=== PATIENT | female | born 1960 | race Caucasian/White ===

== ENCOUNTER → 2017-12-22 | Outpatient (CLI) | payer BC ==
[2017-12-22 11:07] LABS: HGB 13.6 gm/dL (11.4-16.0); MCH 26.5 pg (25.0-35.0); MCHC 33.2 g/dL (31.0-37.0); MCV 79.7 fL (80.0-100.0); Mean Platelet Volume 7.5; Platelet Count 263 k/uL (150-450); RBC 5.15 m/uL (3.80-5.40); RDW 13.7 % (11.5-15.5); WBC 8.5 k/uL (3.8-10.6)
[2017-12-22 11:33] LABS: ALT 26 U/L (9-52); AST 20 U/L (14-36); Alkaline Phosphatase 90 U/L (38-126); Anion Gap 10 mmol/L; Blood Urea Nitrogen 19 mg/dL (7-17); Calcium 9.4 mg/dL (8.4-10.2); Carbon Dioxide 28 mmol/L (22-30); Chloride 103 mmol/L (98-107); Cholesterol 170 mg/dL (<200); Glucose 128 mg/dL (74-99); HDL Cholesterol 34 mg/dL (40-60); LDL Cholesterol,Calculated 106 mg/dL (0-99); Potassium 4.4 mmol/L (3.5-5.1); Sodium 141 mmol/L (137-145); Total Bilirubin 0.5 mg/dL (0.2-1.3); Total Protein 7.5 g/dL (6.3-8.2); Triglycerides 149 mg/dL (<150)
[2017-12-22 20:40] LABS: Hemoglobin A1C 7.3 % (4.0-6.0)
== END | disposition home or self-care (01) ==
LOC: LABWHC1 10:37
PROVIDERS: ATTEND Family Medicine
DX: E11.9 Type 2 diabetes mellitus without complications (principal); I10 Essential (primary) hypertension; E78.00 Pure hypercholesterolemia, unspecified
CPT/HCPCS: 36415; 80053; 80061; 83036; 84443; 85027

== ENCOUNTER → 2018-09-13 | Outpatient (CLI) | payer BC ==
[2018-09-13 10:35] LABS: HCT 42.9 % (34.0-46.0); HGB 13.7 gm/dL (11.4-16.0); MCH 26.4 pg (25.0-35.0); MCV 82.5 fL (80.0-100.0); Mean Platelet Volume 7.7; Platelet Count 268 k/uL (150-450); RDW 14.2 % (11.5-15.5); WBC 8.9 k/uL (3.8-10.6)
[2018-09-13 17:28] LABS: Albumin 4.2 g/dL (3.80-4.90); Albumin/Globulin Ratio 1.5 (1.20-2.10); Anion Gap 11.4 mmol/L (4.00-12.00); Calcium 9.2 mg/dL (8.7-10.3); Carbon Dioxide 25.6 mmol/L (21.6-31.8); Globulin 2.8 g/dL (2.1-3.7); LDL Cholesterol,Calculated 103.6 mg/dL (0.0-131.0); Potassium 4.4 mmol/L (3.5-5.5); Total Bilirubin 0.4 mg/dL (0.3-1.2); VLDL Calculation 24.4 mg/dL (5.00-40.00)
[2018-09-13 20:28] LABS: Hemoglobin A1C 7.5 % (4.0-6.0)
== END ==
LOC: LABWHC1 09:27
PROVIDERS: ATTEND Family Medicine
DX: I10 Essential (primary) hypertension (principal); E11.9 Type 2 diabetes mellitus without complications; E78.00 Pure hypercholesterolemia, unspecified
CPT/HCPCS: 36415; 80053; 80061; 83036; 85027

== ENCOUNTER → 2019-06-07 | Outpatient (CLI) | payer BC ==
[2019-06-07 11:09] LABS: HCT 43.5 % (34.0-46.0); HGB 14.3 gm/dL (11.4-16.0); MCH 26.6 pg (25.0-35.0); MCHC 32.9 g/dL (31.0-37.0); MCV 80.8 fL (80.0-100.0); Mean Platelet Volume 7.6; Platelet Count 305 k/uL (150-450); RBC 5.39 m/uL (3.80-5.40); RDW 14.2 % (11.5-15.5); WBC 11.4 k/uL (3.8-10.6)
[2019-06-07 16:41] LABS: African American GFR (CKD) 110.7 (60.0-200.0); Albumin 4.4 g/dL (3.80-4.90); Albumin/Globulin Ratio 1.42 (1.60-3.17); Anion Gap 9.6 mmol/L (4.00-12.00); BUN/Creat Ratio 25.71 Ratio (12.00-20.00); Calcium 9.6 mg/dL (8.7-10.3); Carbon Dioxide 28.4 mmol/L (21.6-31.8); Chol/HDL Ratio 4.18; Globulin 3.1 g/dL (1.6-3.3); LDL Cholesterol,Calculated 110.2 mg/dL (0.0-131.0); Potassium 4.4 mmol/L (3.5-5.5); Total Bilirubin 0.4 mg/dL (0.2-1.2); Total Protein 7.5 g/dL (6.2-8.2); VLDL Calculation 29.8 mg/dL (5.00-40.00)
[2019-06-07 18:58] LABS: Hemoglobin A1C 7.9 % (4.0-6.0)
== END | disposition home or self-care (01) ==
LOC: LABWHC1 10:28
PROVIDERS: ATTEND Family Medicine
DX: E11.9 Type 2 diabetes mellitus without complications (principal); I10 Essential (primary) hypertension; E78.00 Pure hypercholesterolemia, unspecified
CPT/HCPCS: 36415; 80053; 80061; 83036; 85027

== ENCOUNTER → 2020-03-30 | Outpatient (CLI) | payer OTHER ==
[2020-03-30 10:59] LABS: HCT 43.3 % (34.0-46.0); HGB 13.5 gm/dL (11.4-16.0); MCH 26.1 pg (25.0-35.0); MCHC 31.2 g/dL (31.0-37.0); MCV 83.8 fL (80.0-100.0); Mean Platelet Volume 8.2; Platelet Count 297 k/uL (150-450); RBC 5.17 m/uL (3.80-5.40); WBC 10.8 k/uL (3.8-10.6)
[2020-03-30 17:55] LABS: African American GFR (CKD) 94.2 (60.0-200.0); Albumin 4.2 g/dL (3.80-4.90); Albumin/Globulin Ratio 1.24 (1.60-3.17); Anion Gap 9.1 mmol/L (4.00-12.00); BUN/Creat Ratio 22.5 Ratio (12.00-20.00); Calcium 9.2 mg/dL (8.7-10.3); Carbon Dioxide 27.9 mmol/L (21.6-31.8); Chol/HDL Ratio 4.45; Globulin 3.4 g/dL (1.6-3.3); LDL Cholesterol,Calculated 108.4 mg/dL (0.0-131.0); Non-African American GFR(CKD) 81.3 (60.0-200.0); Potassium 4.5 mmol/L (3.5-5.5); Total Bilirubin 0.4 mg/dL (0.3-1.2); Total Protein 7.6 g/dL (6.2-8.2); VLDL Calculation 29.6 mg/dL (5.00-40.00)
== END | disposition home or self-care (01) ==
LOC: LABWHC1 09:22
PROVIDERS: ATTEND Family Medicine
DX: I10 Essential (primary) hypertension (principal); E11.9 Type 2 diabetes mellitus without complications; E78.00 Pure hypercholesterolemia, unspecified
CPT/HCPCS: 36415; 80053; 80061; 83036; 84443; 85027

== ENCOUNTER → 2020-09-24 | Outpatient (CLI) | payer OTHER ==
[2020-09-24 09:59] LABS: HCT 42.1 % (34.0-46.0); HGB 13.9 gm/dL (11.4-16.0); MCH 27.3 pg (25.0-35.0); MCHC 33.1 g/dL (31.0-37.0); MCV 82.4 fL (80.0-100.0); Platelet Count 296 k/uL (150-450); RBC 5.11 m/uL (3.80-5.40); RDW 13.8 % (11.5-15.5); WBC 10.2 k/uL (3.8-10.6)
[2020-09-24 15:36] LABS: African American GFR (CKD) 93.5 (60.0-200.0); Albumin 4.3 g/dL (3.80-4.90); Albumin/Globulin Ratio 1.43 (1.60-3.17); BUN/Creat Ratio 28.75 Ratio (12.00-20.00); Calcium 9.6 mg/dL (8.7-10.3); Chol/HDL Ratio 4.19; Non-African American GFR(CKD) 80.7 (60.0-200.0); Potassium 4.1 mmol/L (3.5-5.5); Total Bilirubin 0.5 mg/dL (0.2-1.2); Total Protein 7.3 g/dL (6.2-8.2)
[2020-09-24 16:14] LABS: Hemoglobin A1C 6.9 % (4.0-6.0)
== END | disposition home or self-care (01) ==
LOC: LABWHC1 09:00
PROVIDERS: ATTEND Family Medicine
DX: I10 Essential (primary) hypertension (principal); E11.9 Type 2 diabetes mellitus without complications; E78.2 Mixed hyperlipidemia
CPT/HCPCS: 36415; 80053; 80061; 83036; 84443; 85027

== ENCOUNTER → 2021-04-21 | Outpatient (CLI) | payer OTHER ==
[2021-04-21 16:05] LABS: HCT 42.8 % (37.2-46.3); HGB 13.6 g/dL (12.0-15.0); MCH 26.7 pg (27.0-32.0); MCHC 31.8 g/dL (32.0-37.0); MCV 83.9 fL (80.0-97.0); Mean Platelet Volume 11.6 fL (9.5-12.2); Platelet Count 285 X 10*3/uL (140-440); RDW 13.9 % (11.5-14.5); WBC 10.89 X 10*3/uL (4.50-10.00)
[2021-04-21 19:15] LABS: Hemoglobin A1C 7.4 % (4.0-6.0)
[2021-04-21 20:29] LABS: African American GFR (CKD) 81.1 (60.0-200.0); Albumin 4.2 g/dL (3.80-4.90); Albumin/Globulin Ratio 1.27 (1.60-3.17); Anion Gap 10.9 mmol/L (4.00-12.00); BUN/Creat Ratio 23.33 Ratio (12.00-20.00); Calcium 9.1 mg/dL (8.7-10.3); Carbon Dioxide 25.1 mmol/L (21.6-31.8); Chol/HDL Ratio 4.55; Globulin 3.3 g/dL (1.6-3.3); LDL Cholesterol,Calculated 110.4 mg/dL (0.0-131.0); Potassium 4.2 mmol/L (3.5-5.5); Total Bilirubin 0.4 mg/dL (0.2-1.2); Total Protein 7.5 g/dL (6.2-8.2); VLDL Calculation 31.6 mg/dL (5.00-40.00)
== END | disposition home or self-care (01) ==
LOC: LABWHC1 09:24
PROVIDERS: ATTEND Family Medicine
DX: E78.2 Mixed hyperlipidemia (principal); E11.9 Type 2 diabetes mellitus without complications; I10 Essential (primary) hypertension
CPT/HCPCS: 36415; 80053; 80061; 83036; 84443; 85027

== ENCOUNTER → 2021-11-17 | Outpatient (CLI) | payer BC ==
[2021-11-17 11:59] LABS: ALT 14 U/L (8-44); AST 16 U/L (13-35); African American GFR (CKD) 85.2 (60.0-200.0); Albumin 4.1 g/dL (3.8-4.9); Albumin/Globulin Ratio 1.14 (1.60-3.17); Alkaline Phosphatase 93 U/L (41-126); Blood Urea Nitrogen 20.1 mg/dL (9.0-27.0); Calcium 9.4 mg/dL (8.7-10.3); Carbon Dioxide 23.5 mmol/L (20.0-27.5); Chloride 100 mmol/L (96-109); Globulin 3.6 g/dL (1.6-3.3); Glucose 161 mg/dL (70-110); Non-African American GFR(CKD) 73.5 (60.0-200.0); Potassium 4.1 mmol/L (3.5-5.5); Sodium 137 mmol/L (135-145); Total Protein 7.7 g/dL (6.2-8.2)
[2021-11-17 12:12] LABS: HCT 42.6 % (37.2-46.3); HGB 13.4 g/dL (12.0-15.0); MCH 26.6 pg (27.0-32.0); MCHC 31.5 g/dL (32.0-37.0); MCV 84.5 fL (80.0-97.0); Mean Platelet Volume 11.5 fL (9.5-12.2); NRBC Per 100 WBC 0 /100 WBCS (0.0-0.0); Platelet Count 289 X 10*3/uL (140-440); RBC 5.04 X 10*6/uL (4.10-5.20); WBC 9.48 X 10*3/uL (4.50-10.00)
== END | disposition home or self-care (01) ==
LOC: LABWHC1 07:26
PROVIDERS: ATTEND Family Medicine
DX: I10 Essential (primary) hypertension (principal); E11.9 Type 2 diabetes mellitus without complications; E78.00 Pure hypercholesterolemia, unspecified
CPT/HCPCS: 36415; 80053; 80061; 82306; 83036; 84443; 85027

== ENCOUNTER → 2022-06-29 | Outpatient (CLI) | payer BC ==
[2022-06-29 10:51] LABS: HCT 42.9 % (37.2-46.3); MCHC 32.6 g/dL (32.0-37.0); MCV 82.8 fL (80.0-97.0); Mean Platelet Volume 11.2 fL (9.5-12.2); NRBC Per 100 WBC 0 /100 WBCS (0.0-0.0); Platelet Count 267 X 10*3/uL (140-440); RBC 5.18 X 10*6/uL (4.10-5.20); RDW 14.5 % (11.5-14.5); WBC 8.79 X 10*3/uL (4.50-10.00)
[2022-06-29 11:22] LABS: ALT 12 U/L (8-44); AST 15 U/L (13-35); Albumin/Globulin Ratio 1.11 (1.60-3.17); Alkaline Phosphatase 82 U/L (41-126); Blood Urea Nitrogen 20.7 mg/dL (9.0-27.0); Calcium 9.2 mg/dL (8.7-10.3); Carbon Dioxide 22.4 mmol/L (20.0-27.5); Chloride 101 mmol/L (96-109); Chol/HDL Ratio 3.59 Ratio; Globulin 3.6 g/dL (1.6-3.3); Glucose 116 mg/dL (70-110); LDL Cholesterol,Calculated 107.9 mg/dL (0.0-131.0); Potassium 4.1 mmol/L (3.5-5.5); Sodium 136 mmol/L (135-145); Total Protein 7.6 g/dL (6.2-8.2)
== END | disposition home or self-care (01) ==
LOC: LABWHC1 07:31
PROVIDERS: ATTEND Family Medicine
DX: I10 Essential (primary) hypertension (principal); E55.9 Vitamin D deficiency, unspecified; E11.9 Type 2 diabetes mellitus without complications; E78.00 Pure hypercholesterolemia, unspecified
CPT/HCPCS: 36415; 80053; 80061; 82306; 83036; 84443; 85027

== ENCOUNTER → 2023-01-22 | Outpatient (CLI) | payer BC ==
[2023-01-22 16:16] LABS: HCT 46.6 % (37.2-46.3); HGB 14.3 g/dL (12.0-15.0); MCH 25.5 pg (27.0-32.0); MCHC 30.7 g/dL (32.0-37.0); MCV 83.1 fL (80.0-97.0); NRBC Per 100 WBC 0 /100 WBCS (0.0-0.0); Platelet Count 240 X 10*3/uL (140-440); RBC 5.61 X 10*6/uL (4.10-5.20); RDW 14.4 % (11.5-14.5); WBC 7.57 X 10*3/uL (4.50-10.00)
[2023-01-22 16:41] LABS: Chol/HDL Ratio 4.29 Ratio; LDL Cholesterol,Calculated 118.3 mg/dL (0.0-131.0)
[2023-01-22 16:51] LABS: ALT 14 U/L (8-44); AST 24 U/L (13-35); African American GFR (CKD) 80.4 (60.0-200.0); Albumin 4.3 g/dL (3.8-4.9); Albumin/Globulin Ratio 1.19 (1.60-3.17); Alkaline Phosphatase 100 U/L (41-126); Blood Urea Nitrogen 15.5 mg/dL (9.0-27.0); Calcium 9.4 mg/dL (8.7-10.3); Carbon Dioxide 23.8 mmol/L (20.0-27.5); Chloride 101 mmol/L (96-109); Globulin 3.6 g/dL (1.6-3.3); Glucose 155 mg/dL (70-110); Non-African American GFR(CKD) 69.4 (60.0-200.0); Potassium 4.9 mmol/L (3.5-5.5); Sodium 139 mmol/L (135-145)
== END | disposition home or self-care (01) ==
LOC: LABWHC1 07:54
PROVIDERS: ATTEND Family Medicine
DX: I10 Essential (primary) hypertension (principal); E11.9 Type 2 diabetes mellitus without complications; E55.9 Vitamin D deficiency, unspecified; E78.5 Hyperlipidemia, unspecified
CPT/HCPCS: 36415; 80053; 80061; 82306; 83036; 84443; 85027

== ENCOUNTER → 2023-08-24 | Outpatient (CLI) | payer BC ==
[2023-08-24 15:36] LABS: HCT 42.9 % (37.2-46.3); HGB 13.6 g/dL (12.0-15.0); MCH 25.9 pg (27.0-32.0); MCHC 31.7 g/dL (32.0-37.0); MCV 81.6 FL (80.0-97.0); Mean Platelet Volume 11.2 FL (9.5-12.2); NRBC Per 100 WBC 0 X 10*3/uL (0.00-0.01); Platelet Count 299 X 10*3/uL (140-440); RBC 5.26 X 10*6/uL (4.10-5.20); RDW 14.8 % (11.5-14.5); WBC 10.22 X 10*3/uL (4.50-10.00)
[2023-08-24 16:05] LABS: ALT 16 U/L (8-44); AST 10 U/L (13-35); Albumin 4.2 g/dL (3.8-4.9); Albumin/Globulin Ratio 1.27 Ratio (1.60-3.17); Alkaline Phosphatase 87 U/L (41-126); BUN/Creat Ratio 22.88 Ratio (12.00-20.00); Blood Urea Nitrogen 18.3 mg/dL (9.0-27.0); Calcium 9.6 mg/dL (8.7-10.3); Carbon Dioxide 25.8 mmol/L (21.6-31.8); Chloride 102 mmol/L (96-109); Chol/HDL Ratio 4.31 Ratio; Globulin 3.3 g/dL (1.6-3.3); Glucose 110 mg/dL (70-110); LDL Cholesterol,Calculated 102.1 mg/dL (0.0-131.0); Potassium 4.2 mmol/L (3.5-5.5); Sodium 140 mmol/L (135-145); Total Bilirubin 0.3 mg/dL (0.3-1.2); Total Protein 7.5 g/dL (6.2-8.2)
== END | disposition home or self-care (01) ==
LOC: LABWHC1 09:40
PROVIDERS: ATTEND Family Medicine
DX: I10 Essential (primary) hypertension (principal); E11.9 Type 2 diabetes mellitus without complications; E78.00 Pure hypercholesterolemia, unspecified
CPT/HCPCS: 36415; 80053; 80061; 83036; 84443; 85027

== ENCOUNTER → 2024-02-23 | Outpatient (CLI) | payer BC ==
[2024-02-23 10:29] LABS: Appearance,Urine Clear (Clear); Bilirubin,Urine Negative (Negative); Blood,Urine Moderate (Negative); Calcium Oxalate Crystals,Urine Rare /hpf; Color,Urine Colorless; Glucose,Urine (UA) Negative (Negative); Ketones,Urine Negative (Negative); Leukocyte Esterase,Urine Negative (Negative); Nitrite,Urine Negative (Negative); Protein,Urine Negative (Negative); RBC,Urine <1 /hpf (0-5); Specific Gravity,Urine 1.012 (1.001-1.035); Squamous Epithelial Cell,Urine <1 /hpf (0-4); Urobilinogen,Urine <2.0 mg/dL (<2.0); WBC,Urine <1 /hpf (0-5)
[2024-02-23 13:17] LABS: HCT 43.5 % (37.2-46.3); HGB 13.7 g/dL (12.0-15.0); MCH 26.3 pg (27.0-32.0); MCHC 31.5 g/dL (32.0-37.0); MCV 83.7 FL (80.0-97.0); Mean Platelet Volume 10.6 FL (9.5-12.2); NRBC Per 100 WBC 0 X 10*3/uL (0.00-0.01); Platelet Count 301 X 10*3/uL (140-440); WBC 10.16 X 10*3/uL (4.50-10.00)
[2024-02-23 13:50] LABS: ALT 12 U/L (8-44); AST 14 U/L (13-35); Albumin 4.3 g/dL (3.8-4.9); Albumin/Globulin Ratio 1.26 Ratio (1.60-3.17); Alkaline Phosphatase 97 U/L (41-126); BUN/Creat Ratio 24.44 Ratio (12.00-20.00); Calcium 9.6 mg/dL (8.7-10.3); Carbon Dioxide 21.1 mmol/L (21.6-31.8); Chloride 102 mmol/L (96-109); Chol/HDL Ratio 4.06 Ratio; Globulin 3.4 g/dL (1.6-3.3); Glucose 146 mg/dL (70-110); LDL Cholesterol,Calculated 112.5 mg/dL (0.0-131.0); Potassium 4.3 mmol/L (3.5-5.5); Sodium 140 mmol/L (135-145); Total Bilirubin 0.4 mg/dL (0.3-1.2); Total Protein 7.7 g/dL (6.2-8.2)
== END | disposition home or self-care (01) ==
LOC: LABWHC1 08:56
PROVIDERS: ATTEND Family Medicine
DX: I10 Essential (primary) hypertension (principal); E11.9 Type 2 diabetes mellitus without complications; R30.0 Dysuria; E78.00 Pure hypercholesterolemia, unspecified
CPT/HCPCS: 36415; 80053; 80061; 81001; 83036; 84443; 85027

== ENCOUNTER → 2024-03-04 | Outpatient (CLI) | payer BC ==
--- NOTE | 2024-03-05 14:47 | US ---
EXAMINATION TYPE: US kidneys/renal and bladder DATE OF EXAM: 03/04/2024 COMPARISON: NONE CLINICAL INDICATION: Female, 63 years old with history of R10.9 UNSPECIFIED ABDOMINAL PAIN,R31.9; EXAM MEASUREMENTS: Right Kidney: 10.3 x 5.7 x 5.3 cm Left Kidney: 12.9 x 5.8 x 6.2 cm Suboptimal due to overlying bowel gas and patient body habitus Right Kidney: No hydronephrosis or masses seen, appears smaller compared to contralateral kidney Left Kidney: No hydronephrosis or masses seen Bladder: Distended, anechoic Bilateral Jets not seen IMPRESSION: 1. Unremarkable renal ultrasound
== END | disposition home or self-care (01) ==
LOC: RADUSWWP 16:40
PROVIDERS: ATTEND Family Medicine
DX: R10.9 Unspecified abdominal pain (principal); R31.9 Hematuria, unspecified
CPT/HCPCS: 76770